=== PATIENT | male | born 1975 | race Caucasian/White ===

== ENCOUNTER 2019-10-14 16:16 | Emergency (ER) | payer MEDICAID ==
[2019-10-14 16:26] VITALS: BP 145/67
--- NOTE | 2019-10-14 16:47 | ED Physician Documentation ---
History of Present Illness - Stated complaint Stated Complaint: LT KNEE INJURY - Chief complaint Chief Complaint: Ext Problem - Additonal information Additional information: This is a 44-year-old male who presents with left knee and ankle pain. He was moving a shed to the day and he slipped off a trailer scraping his leg from his inferior knee down to his ankle on a piece of metal. He was able to walk afterwards but over the subsequent days has had increased pain. The pain is mostly localized just inferior to his knee, but he also has some posterior medial malleoli or pain. He has not needed to use crutches, but walking is painful. He denies numbness or tingling Review of Systems Constitutional: denies: Fever Skin: reports: Abrasion (s) Musculoskeletal: reports: Extremity pain Neurologic: denies: Numbness PD PAST MEDICAL HISTORY - Present Medications Home Medications: Ambulatory Orders Medication Instructions Recorded Confirmed No Known Home Medications 10/14/19 10/14/19 - Allergies Allergies/Adverse Reactions: Allergies Allergy/AdvReac Type Severity Reaction Status Date / Time No Known Drug Allergies Allergy Verified 10/14/19 16:23 - Living Situation Living Arrangement: reports: At home - Family History Family history: reports: Non contributory PD ED PE NORMAL - Vitals Vital signs reviewed: Yes - General General: Alert and oriented X 3, No acute distress - HEENT HEENT: Atraumatic - Cardiac Cardiac: Strong equal pulses - Respiratory Respiratory: No respiratory distress - Derm Derm: Warm and dry - Extremities Extremities: Other (Superficial abrasion over left lower leg/palumbo. Tenderness over the anterior superior tibia, without crepitus. MCL, LCL, ACL, PCL without laxity on testing. Good active ROM of knee. No patellar tenderness. Pt is able to walk on the knee. He has mild posterior medial malleolr tenderness, ankle appears atraumatic, neurovascularly intact, full active ROM.) - Neuro Neuro: Alert and oriented X 3 - Psych Psych: Normal mood, Normal affect Results - Vitals Vitals: Oxygen O2 Source Room air - Rads (name of study) XR knee Radiology: Other (Possible trace joint effusion, no osseous abnormalities) XR ankle Radiology: Other (No acute osseous abnormalities) PD MEDICAL DECISION MAKING - ED course ED course: Limbs are neurovascularly intact. Ligaments are grossly intact to testing in knee, and pt is able to range and bear weight on the knee and ankle. XR show no signs of fracture today, and given his function and exam occult fracture is unlikely. I discussed supportive care, pt has a brace and crutches at home that he will use, declines equipment from the ED today. I also discussed the need for follow up, particularly with any persistent or non-improving symptoms. I discussed the possibility of ligamentous or cartilaginous injury as well and a repeat exam unless his symptoms completely resolve. He agrees and was discharged home in good condition. Departure - Departure Disposition: Home, Self Care Clinical Impression: Knee pain Qualifiers: Chronicity: acute Laterality: left Qualified Code(s): M25.562 - Pain in left knee Condition: Good Instructions: ED RICE Comments: Your x-ray does not show signs of obvious broken bones in your knee or ankle. You do have a small joint effusion in the knee which suggest some type of injury. Use your knee brace as we discussed, and until you are able to walk normally without a limp I would also use crutches to avoid bearing weight on your knee. Try ibuprofen 600 mg every 6 hours and Tylenol 650 mg every 6 hours for pain. Rest, ice, and elevate your knee and ankle when possible. If you are having not improving pain or worsening pain in a week from now, it is important that you follow-up as you may need further imaging or tests. If you are developing severely worsening symptoms, Return to the ED for a recheck Discharge Date/Time: 10/14/19 18:07
--- NOTE | 2019-10-14 17:36 | XRAY Report ---
Reason: Posterior medial mal pain Procedure Date: 10/14/2019 Accession Number: [id number] / [id number] Procedure: XR - Ankle 3 View LT CPT Code: Final Report FULL RESULT: EXAM: LEFT ANKLE RADIOGRAPHY EXAM DATE: 10/14/2019 05:15 PM. CLINICAL HISTORY: Posterior medial mal pain. COMPARISON: None. TECHNIQUE: 3 views. FINDINGS: Bones: Normal. No fractures or bone lesions. Joints: Normal. No effusion. No subluxations. The ankle mortise is normally aligned. Soft Tissues: Mild soft tissue swelling over medial malleolus. IMPRESSION: Soft tissue swelling. RADIA
--- NOTE | 2019-10-14 17:38 | XRAY Report ---
Reason: Left knee pain, patella pain Procedure Date: 10/14/2019 Accession Number: [id number] / [id number] Procedure: XR - Knee 4 View LT CPT Code: Final Report FULL RESULT: EXAM: LEFT KNEE RADIOGRAPHY EXAM DATE: 10/14/2019 05:15 PM. CLINICAL HISTORY: Left knee pain, patella pain. COMPARISON: None. TECHNIQUE: 4 views, including oblique views. FINDINGS: Bones: Normal. No fractures or bone lesions. Joints: Joint spaces well preserved. Possible trace joint effusion. Soft Tissues: Unremarkable. IMPRESSION: Possible trace effusion. RADIA
== END 2019-10-14 18:07 | disposition home or self-care (01) ==
LOC: ED 16:16
DX: S80.812A Abrasion, left lower leg, initial encounter (principal); M25.562 Pain in left knee; M25.462 Effusion, left knee; W17.89XA Other fall from one level to another, initial encounter; W26.8XXA Contact with other sharp object(s), not elsewhere classified, initial encounter; Y93.89 Activity, other specified
CPT/HCPCS: 99283

== ENCOUNTER 2020-01-15 14:46 | Emergency (ER) | payer MEDICAID ==
[2020-01-15 14:58] VITALS: BP 143/83
--- NOTE | 2020-01-15 15:10 | ED Physician Documentation ---
PD HPI LOWER EXT INJURY - Stated complaint Stated Complaint: R ANKLE PAIN - Chief complaint Chief Complaint: Ext Problem - History obtained from History obtained from: Patient - History of Present Illness PD HPI LOW EXT INJURY LOCATION: Right, Ankle (Pt presents w/ persistent r ankle pain now 2 months s/p yomi injury. He was walking dog and stepped in a hole and twisted ankle. Able to walk and presumed it was just sprained. He did ice and heat and ibuprofen and compression and elevation and decreased his activity, but he has had no improvement in pain level and continues to have periodic swelling around the right lateral ankle. Made multiple appts w/ PCP but they were cancelled so he has not been able to get imaging. Most recently this AM his PCP appt was cancelled and he was frustrated and wanted an xray so presented to the ER.) Review of Systems Constitutional: reports: Reviewed and negative Cardiac: reports: Reviewed and negative Respiratory: reports: Reviewed and negative Musculoskeletal: reports: Extremity pain, Joint swelling PD PAST MEDICAL HISTORY - Present Medications Home Medications: Ambulatory Orders Medication Instructions Recorded Confirmed No Known Home Medications 10/14/19 01/15/20 - Allergies Allergies/Adverse Reactions: Allergies Allergy/AdvReac Type Severity Reaction Status Date / Time No Known Drug Allergies Allergy Verified 01/15/20 14:58 PD ED PE NORMAL - Vitals Vital signs reviewed: Yes - General General: Alert and oriented X 3, No acute distress, Well developed/nourished - HEENT HEENT: Atraumatic - Derm Derm: Normal color, Warm and dry, No rash - Extremities Extremities: Other (right lateral malleolus and anterior talofibular ligamentous tenderness, mild swelling localized to right lateral malleolus. no other areas of foot or ankle tenderness. Calf if soft, non-tender, no fullness. No erythema or skin infection) Results - Vitals Vitals: Vital Signs - 24 hr 01/15/20 14:52 Temperature 36.7 C Heart Rate 76 Respiratory 16 Rate Blood Pressure 143/83 H O2 Saturation 97 Oxygen O2 Source Room air PD MEDICAL DECISION MAKING - ED course Complexity details: reviewed results, re-evaluated patient, considered differential, d/w patient ED course: Pt presented w/ 2 months of right ankle pain. An xray revealed a possible calcified tendon vs small avulsion fracture. I discussed the findings w/ pt and did offer a posterior splint and crutches to rest the ankle vs continued supportive measures at home. Pt declines splint and is currently off work so he will limit activity for 1-2 weeks to eval for improvement. Continue prn cool compress, elevation, nsaids. Departure - Departure Disposition: 01 Home, Self Care Clinical Impression: Pain of lower extremity Qualifiers: Laterality: right Qualified Code(s): M79.604 - Pain in right leg Condition: Good Instructions: ED Fx Lower Extr Ch Comments: As discussed, you may have an avulsion fracture or a calcified tendon at the site of your right ankle pain/swelling. Please continue supportive measures and follow up with PCP or ortho when you are able to get into the clinic. If you change your mind and would like crutches or a splint, please return to the ER.
--- NOTE | 2020-01-15 15:36 | XRAY Report ---
Reason: pain Procedure Date: 01/15/2020 Accession Number: [id number] / [id number] Procedure: XR - Ankle 3 View RT CPT Code: Final Report FULL RESULT: EXAM: RIGHT ANKLE RADIOGRAPHY EXAM DATE: 01/15/2020 03:19 PM. CLINICAL HISTORY: Pain. COMPARISON: ANKLE 3 VIEW LT 10/14/2019 4:59 PM. TECHNIQUE: 3 views. FINDINGS: A subtle linear calcification medial to the tip of the lateral malleolus, compatible with tendinous calcification versus a previous small avulsion fracture. This is seen on the ankle mortise view. Elsewhere, no fracture identified. Soft Tissues: No soft tissue swelling. No ankle joint effusion. IMPRESSION: Question of tendinous calcification versus small avulsion fracture adjacent to the tip of the lateral malleolus. RADIA
== END 2020-01-15 16:21 | disposition home or self-care (01) ==
LOC: ED 14:46
DX: M25.571 Pain in right ankle and joints of right foot (principal)
CPT/HCPCS: 99282; 99283

== ENCOUNTER 2020-07-22 13:10 | Outpatient (CLI) | payer MEDICAID | END 2020-07-22 13:11 | disposition home or self-care (01) | LOC: COV 13:10 | PROVIDERS: ATTEND Family Medicine | DX: R05 Cough (principal); Z20.828 Contact with and (suspected) exposure to other viral communicable diseases; R06.02 Shortness of breath; R53.83 Other fatigue; R09.81 Nasal congestion; R19.7 Diarrhea, unspecified; R11.2 Nausea with vomiting, unspecified; M79.10 Myalgia, unspecified site ==